=== PATIENT | female | born 1965 | race Caucasian/White ===

== ENCOUNTER 2021-04-13 15:50 | Emergency (ER) | payer OTHER ==
--- NOTE | 2021-04-13 16:44 | EDM.PDOC ---
ED HPI GENERAL MEDICAL PROBLEM - General Chief Complaint: Allergic Reaction Stated Complaint: BEE STRING Time Seen by Provider: 04/13/21 16:25 Source of Information: Reports: Patient, RN. Denies: Old Records History Limitations: Reports: No Limitations - History of Present Illness INITIAL COMMENTS - FREE TEXT/NARRATIVE: 55 yo female presents with L hand swelling after a bee sting today. She did have some hives, but they have resolved after Benedryl 50 mg po. Had no difficulty with breathing or swallowing. Is mainly here now for removal of a ring from her swollen L hand. Onset: Today, Gradual Onset Date: 04/13/21 Duration: Minutes: (90), Getting Worse Location: Reports: Upper Extremity, Left Quality: Reports: Dull Severity: Mild Improves with: Reports: None Worsens with: Reports: Other (? time) Context: Reports: Other (bee sting) Associated Symptoms: Reports: No Other Symptoms Treatments [employer]: Reports: Other (see below) (Benedryl 50 mg po and prednisone 5 mg po) Left Hand Pain Score (Numeric/FACES): 8 - Related Data Allergies Allergy/AdvReac Type Severity Reaction Status Date / Time No Known Allergies Allergy Verified 04/13/21 16:20 Home Meds: Home Meds Levothyroxine Sodium [Synthroid] 75 mcg PO DAILY 04/13/21 [History] Past Medical History - Past Health History Medical/Surgical History: Denies Medical/Surgical History - Infectious Disease History Infectious Disease History: Reports: Chicken Pox Social & Family History - Tobacco Use Tobacco Use Status *Q: Never Tobacco User - Caffeine Use Caffeine Use: Reports: Coffee, Soda, Tea - Recreational Drug Use Recreational Drug Use: No ED ROS ALLERGIC REACTION - Review of Systems Review Of Systems: See Below Constitutional: Reports: No Symptoms HEENT: Reports: No Symptoms Respiratory: Reports: No Symptoms Cardiovascular: Reports: No Symptoms GI/Abdominal: Reports: No Symptoms Musculoskeletal: Reports: Hand Pain (L ring finger from constriction of a ring) Skin: Reports: Pruritis, Rash (hives, now gone) Neurological: Reports: No Symptoms ED EXAM GENERAL NO PERIP PULSE - Physical Exam Exam: See Below Exam Limited By: No Limitations General Appearance: Alert, WD/WN, No Apparent Distress Eye Exam: Bilateral Eye: Normal Inspection Ears: Normal External Exam, Normal Canal, Hearing Grossly Normal Nose: Normal Inspection, No Blood Throat/Mouth: Normal Lips, Normal Voice, No Airway Compromise Head: Atraumatic, Normocephalic Neck: Normal Inspection Respiratory/Chest: No Respiratory Distress, No Accessory Muscle Use Cardiovascular: Regular Rate, Rhythm Neurological: Alert, Oriented, CN II-XII Intact, Normal Cognition, No Motor/Sensory Deficits Skin Exam: Warm, Dry, Intact, No Rash, Erythema (of L hand with edema). No: Normal Color, Increased Warmth, Wound/Incision ED Add Procedures - Additional/Other Procedure(s) Procedure(s) (Free Text): Ring removed with a ring cutter. Course - Vital Signs Last Recorded V/S: Last Vital Signs Temp 35.8 C L 04/13/21 16:14 Pulse 78 04/13/21 16:14 Resp 16 04/13/21 16:14 BP 142/70 H 04/13/21 16:14 Pulse Ox 98 04/13/21 16:14 Departure - Departure Time of Disposition: 16:44 Disposition: Home, Self-Care 01 Clinical Impression: Tight ring on finger Local reaction to bee sting Qualifiers: Encounter type: initial encounter Injury intent: accidental or unintentional Qualified Code(s): T63.441A - Toxic effect of venom of bees, accidental (unintentional), initial encounter - Discharge Information *PRESCRIPTION DRUG MONITORING PROGRAM REVIEWED*: Not Applicable *COPY OF PRESCRIPTION DRUG MONITORING REPORT IN PATIENT KIR[facility]: Not Applicable Referrals: PCP,None [Primary Care Provider] - Additional Instructions: Continue diphenhydramine 50 mg every 4-6 hrs until all your symptoms have resolved. Elevate your left hand to reduce swelling. Use Epi-Pen for allergic reaction with throat swelling or difficulty breathing or light-headedness. Sepsis Event Note (ED) - Focused Exam Vital Signs: Vital Signs Temp Pulse Resp BP Pulse Ox 04/13/21 16:14 35.8 C L 78 16 142/70 H 98
== END 2021-04-13 17:22 | disposition home or self-care (01) ==
LOC: JP.ED 15:50
DX: T63.441A Toxic effect of venom of bees, accidental (unintentional), initial encounter (principal); R60.0 Localized edema; S60.455A Superficial foreign body of left ring finger, initial encounter; Z79.899 Other long term (current) drug therapy; W45.8XXA Other foreign body or object entering through skin, initial encounter
CPT/HCPCS: 99283